=== PATIENT | male | born 1965 | race Caucasian/White ===

== ENCOUNTER 2019-03-16 09:07 | Outpatient (REF) | payer BC, SELFPAY ==
[2019-03-16 20:55] LABS: Anion Gap 9.1 mmol/L (3-11); BUN 19 mg/dL (7-18); CO2 30.9 mmol/L (21.0-32.0); CREATININE 0.85 mg/dL (0.70-1.30); Calcium 9.1 mg/dL (8.5-10.1); Chloride 99 mmol/L (98-107); Cholesterol 134 mg/dL (50-200); Glucose 105 mg/dL (70-100); HDL Cholesterol 45 mg/dL (40-60); LDL CHOLESTEROL 68 mg/dL (<100); Potassium 4.6 mmol/L (3.5-5.1); Sodium 139 mmol/L (136-145); Triglyceride 95 mg/dL (30-150)
== END 2019-03-16 09:27 ==
LOC: NCHCN 09:07
PROVIDERS: PCP Nurse Practitioner Family; Visit Provider Specialist/Technologist Athletic Trainer
DX: Z00.00 Encounter for general adult medical examination without abnormal findings (principal); Z13.228 Encounter for screening for other metabolic disorders; Z13.220 Encounter for screening for lipoid disorders
CPT/HCPCS: 80048; 80061; 83721

== ENCOUNTER 2019-05-20 14:01 | Emergency (ER) | payer BC, SELFPAY ==
[2019-05-20 14:03] VITALS: BP 179/93; PULSE 104; RESP 18; TEMP 36.5; O2SAT 97
--- NOTE | 2019-05-20 14:12 | W.ED.GENAD ---
Discharge Plan Disposition Patient Disposition: HOME Condition: Stable Discharge Details Chief Complaint: GenMedical Clinical Impression: Chest pain Primary Care Provider: Tamara Coleman V ED Provider: Ta Gimenez Home Meds and New Rx's Prescriptions: No Action aspirin 325 MG tablet 325 mg PO DAILY RF: 0 amlodipine 5 MG tablet 5 mg PO DAILY RF: 0 metoprolol succinate 25 MG tablet extended release 24 hr 37.5 mg PO DAILY RF: 0 atorvastatin 40 mg Tablet 40 mg PO DAILY RF: 0 lisinopril 20 mg Tablet 20 mg PO DAILY RF: 0 Discharge Instructions Instructions: Chest Pain (ED) Additional Instructions: follow up with your primary care provider within 1 week and discuss having stress testing if you have worsening pain, difficulty breathing or feel more ill return to the emergency department Medical Decision Making 54 yo fmale with hx of htn, hld, who comes in feeling chest achiness in the anterior chest since last night. Denies fevers, cough, increased pain with exertion, does have pain with movement of the left arm. He has no radiation of pain, diaphoresis, n/v. He is in no distress on exam, has reproducible pain with palpation to the anterior chest, clear lungs, no mururs , no leg swelling or calf pain. I suspect his pain is musculoskeletal in nature, but given his age and heart score of 3 will send troponin. Will also send d dimer given HR of 105 during my exam , wells score low. He has no tearing back pain normal vascular exam so doubt dissection. Given clear lungs, no fevers and cough doubt ptx or pna at this time Patient remains well in no distress and only has pain when I push on his chest. Labs unremarkable, given over a day of pain do not feel delta troponin would be of benefit. Will d/c home and advised f/u with pcp and return precautions given Differential Diagnosis chest wall pain, acs, pe Medical Records Medical records reviewed: Yes I reviewed the patient's medical records. Lab Data Lab results reviewed: Yes I reviewed the patient's lab results. ECG Data Attestation: I personally reviewed and interpreted this ECG (s) as follows: Prior ECG tracings: not available for review Interpretation: sinus rhythm, rate of 100, pr 192, no acute st t wave ischemic findings HPI General Mode of arrival: ambulatory. Date/Time Provider Initiated Documentation: 05/20/19 14:03. Limitations to Documentation: no limitations. Information obtained by: patient. History of Present Illness 54 year old M presents to the emergency department with the chief complaint of chest achiness, described as mild, with intensity rated at 3. Quality is described as aching, and is localized to the chest. Patient reports no radiation. Patient started experiencing this day(s) (1) and it has been constant. No relieving factors improve symptom(s), No exacerbating factors reported . Patient did receive the following treatments prior to arrival, none Related Data Home Medications Medication Instructions Recorded Confirmed amlodipine 5 mg PO DAILY tab-cap 06/19/14 05/20/19 aspirin 325 mg PO DAILY tab-cap 06/19/14 05/20/19 metoprolol succinate 37.5 mg PO DAILY tab-cap 06/19/14 05/20/19 atorvastatin 40 mg PO DAILY 05/20/19 05/20/19 lisinopril 20 mg PO DAILY 05/20/19 05/20/19 Allergies Allergy/AdvReac Type Severity Reaction Status Date / Time No Known Allergies Allergy Unverified 05/20/19 14:11 General Stated Complaint: GenMedical BUCK: 3 Review of Systems Review of Systems All systems reviewed & are unremarkable except as noted in HPI and below Constitutional Denies chills, Denies fever(s) and Denies weakness Cardiovascular Denies dyspnea Respiratory Denies cough and Denies dyspnea Gastrointestinal Denies abdominal pain, Denies nausea and Denies vomiting Integumentary/Breasts Denies rash Neurologic Denies weakness PFSH Social History Smoking/Tobacco Use Status: Never Alcohol Intake: current Alcohol Intake frequency: 3 or more drinks per day Alcohol type: beer Drug use: Never Do you feel safe at home: Yes Do you feel safe in your relationship?: Yes Exam Const General: no acute distress Orientation: alert [facility] Head: normal to inspection Ears: external ears normal General nose exam: external nose normal Mouth: moist mucous membranes Eyes General: appearance normal, both eyes and all related structures Neck Neck: normal visual inspection Resp Effort & Inspection: normal respiratory effort and able to speak in complete sentences Cardio Rate: regular rate Skin General skin exam: no rashes or lesions noted Neuro General: alert and oriented x3 Extrem General: normal to inspection Psych Mental Status: mental status grossly normal Course Vital Signs Temperature 36.5 C 05/20/19 14:03 Pulse 104 H 05/20/19 14:03 Respiratory Rate 18 05/20/19 14:03 Blood Pressure 179/93 H 05/20/19 14:03 Pulse Oximetry 97 05/20/19 14:03 Temperature 36.5 C 05/20/19 14:03 Temperature Source Skin 05/20/19 14:03 Pulse 104 H 05/20/19 14:03 Respiratory Rate 18 05/20/19 14:03 Respiratory Effort Non-Labored 05/20/19 14:06 Blood Pressure 179/93 H 05/20/19 14:03 Blood Pressure Position Sitting 05/20/19 14:03 Pulse Oximetry 97 05/20/19 14:03 Oxygen Delivery Method Room Air 05/20/19 14:03 Oxygen Flow Rate 0 05/20/19 14:03
[2019-05-20] MEDS: Normal Saline Flush 10 ML SYR IVP (14:14)
[2019-05-20 14:18] VITALS: RESP 18
[2019-05-20] MEDS: Normal Saline 1,000 ML 1000 ML IV (14:24)
[2019-05-20 14:31] LABS: Abs Immature Grans 0.05 k/cumm (0.0-0.09); Absolute Basophil Count 0.02 k/cumm (0.0-0.2); Absolute Eosinophil Count 0.02 k/cumm (0.0-0.7); Absolute Lymphocyte Count 1.57 k/cumm (1.2-3.4); Absolute Monocyte Count 0.73 k/cumm (0.11-0.7); Absolute Neutrophil Count 3.65 k/cumm (1.2-6.7); Basophils % 0.3; Eosinophils % 0.3; HGB 15.1 g/dL (13.5-17.5); Immature Grans % 0.8; Mean Corp. HGB Concentration 34.3 g/dL (32.0-36.0); Mean Corpuscular Hemoglobin 32.5 pg (27.0-33.0); Mean Corpuscular Volume 94.6 fL (80-95); Mean Platelet Volume 9.5 fL (8.0-11.0); Monocytes % 12.1; Neutrophils % 60.5; Platelet Count 268 x1000/uL (130-400); RBC 4.65 m/cumm (4.50-6.00); White Blood Cell Count 6.04 k/cumm (4.4-10.8)
[2019-05-20 14:40] LABS: PTT Activated 24.5 sec (21.0-31.4); Prothrombin Time 10.4 sec (9.3-11.0)
[2019-05-20 14:55] LABS: D-Dimer 259 ng/mlFEU (<500)
[2019-05-20 15:07] LABS: ALT 44 U/L (12-78); AST 23 U/L (15-37); Albumin 4.4 g/dL (3.4-5.0); Alkaline Phosphatase 89 U/L (46-116); BUN 15 mg/dL (7-18); Bilirubin, Total 0.6 mg/dL (0.2-1.0); CREATININE 1.01 mg/dL (0.70-1.30); Calcium 9.9 mg/dL (8.5-10.1); Chloride 102 mmol/L (98-107); Glucose 114 mg/dL (70-100); Magnesium 2.2 mg/dL (1.8-2.4); NT-proBNP 28 pg/mL; Potassium 3.9 mmol/L (3.5-5.1); Sodium 141 mmol/L (136-145); Total Protein 7.8 g/dL (6.4-8.2); Troponin I < 0.05 ng/mL (0.00-0.06)
[2019-05-20 15:19] VITALS: BP 141/80; PULSE 84; RESP 16; TEMP 37.1; O2SAT 97
== END 2019-05-20 15:23 | disposition home or self-care (01) ==
PROVIDERS: Emergency Provider Emergency Medicine; PCP Family Medicine
DX: R07.9 Chest pain, unspecified (principal); I10 Essential (primary) hypertension
CPT/HCPCS: 36415; 80053; 93005; 96360; 99284; 83735; 83880; 84484; 85025; 85379; 85610; 85730; 93010; J3490

== ENCOUNTER 2021-05-27 08:42 | Outpatient (REF) | payer BC, SELFPAY ==
[2021-05-27 15:01] LABS: ALT 45 U/L (16-63); AST 25 U/L (15-37); Albumin 4.5 g/dL (3.4-5.0); Alkaline Phosphatase 72 U/L (46-116); Anion Gap 9.2 mmol/L (3-11); BUN 14 mg/dL (7-18); Bilirubin, Total 0.7 mg/dL (0.2-1.0); CO2 29.8 mmol/L (21.0-32.0); CREATININE 0.9 mg/dL (0.70-1.30); Calcium 9.4 mg/dL (8.5-10.1); Chloride 103 mmol/L (98-107); Glucose 96 mg/dL (74-106); Potassium 4.4 mmol/L (3.5-5.1); Sodium 142 mmol/L (136-145)
[2021-05-27 15:17] LABS: Hemoglobin A1C 5.5 % (<5.7)
== END 2021-05-27 08:43 | disposition home or self-care (01) ==
LOC: NCHCN 08:42
PROVIDERS: PCP Family Medicine; Visit Provider Nurse Practitioner Family
DX: I10 Essential (primary) hypertension (principal); R73.9 Hyperglycemia, unspecified; F10.99 Alcohol use, unspecified with unspecified alcohol-induced disorder
CPT/HCPCS: 80053; 83036

== ENCOUNTER 2021-08-09 10:15 | Outpatient (REF) | payer BC, SELFPAY ==
[2021-08-10 15:32] LABS: COVID-19 RT-PCR UVMMC Result Negative (Negative)
== END 2021-08-09 10:16 | disposition home or self-care (01) ==
LOC: NCHCN 10:15
PROVIDERS: PCP Family Medicine; Visit Provider Physician Assistant Medical
DX: Z20.822 Contact with and (suspected) exposure to COVID-19 (principal); J06.9 Acute upper respiratory infection, unspecified
CPT/HCPCS: U0003

== ENCOUNTER 2022-06-02 11:10 | Outpatient (REF) | payer OTHER, SELFPAY ==
[2022-06-02 16:49] LABS: Hemoglobin A1C 5.6 % (<5.7)
[2022-06-02 17:04] LABS: Anion Gap 9.3 mmol/L (3-11); BUN 20 mg/dL (7-18); CO2 25.7 mmol/L (21.0-32.0); CREATININE 0.9 mg/dL (0.70-1.30); Calcium 8.6 mg/dL (8.5-10.1); Calculated LDL 81 mg/dL (<100); Chloride 103 mmol/L (98-107); Cholesterol 160 mg/dL (<200); Glucose 107 mg/dL (74-106); HDL Cholesterol 63 mg/dL (40-60); Sodium 138 mmol/L (136-145); Triglyceride 82 mg/dL (<150)
== END 2022-06-02 11:11 | disposition home or self-care (01) ==
LOC: NCHCN 11:10
PROVIDERS: PCP Family Medicine; Visit Provider Nurse Practitioner Family
DX: E78.5 Hyperlipidemia, unspecified (principal); I10 Essential (primary) hypertension; R73.09 Other abnormal glucose
CPT/HCPCS: 80048; 80061; 83036

== ENCOUNTER 2023-06-08 15:20 | Outpatient (REF) | payer OTHER, SELFPAY ==
[2023-06-08 16:18] LABS: Hemoglobin A1C 5.5 % (<5.7)
[2023-06-08 16:30] LABS: ALT 43 U/L (16-63); AST 32 U/L (15-37); Albumin 4.1 g/dL (3.4-5.0); Alkaline Phosphatase 81 U/L (46-116); Anion Gap 6.8 mmol/L (3-11); BUN 17 mg/dL (7-18); Bilirubin, Total 0.7 mg/dL (0.2-1.0); CO2 29.2 mmol/L (21.0-32.0); Calcium 9.1 mg/dL (8.5-10.1); Chloride 102 mmol/L (98-107); Estimated GFR 86.16 (mL/min/1.73m2); Glucose 100 mg/dL (74-106); Potassium 4.2 mmol/L (3.5-5.1); Sodium 138 mmol/L (136-145); Total Protein 7.1 g/dL (6.4-8.2)
[2023-06-08 17:25] LABS: Vitamin D 25 Total 21.7 ng/mL (30-100)
[2023-06-09 19:44] LABS: PSA, Screening 0.3 ng/mL (<=4.5)
== END 2023-06-08 15:21 | disposition home or self-care (01) ==
LOC: NCHCN 15:20
PROVIDERS: PCP Family Medicine; Visit Provider Nurse Practitioner Family
DX: Z00.00 Encounter for general adult medical examination without abnormal findings (principal); I10 Essential (primary) hypertension; E78.5 Hyperlipidemia, unspecified; R73.09 Other abnormal glucose; Z12.5 Encounter for screening for malignant neoplasm of prostate; E55.9 Vitamin D deficiency, unspecified
CPT/HCPCS: 80053; 82306; 84153; 83036

== ENCOUNTER 2024-06-20 12:25 | Outpatient (REF) | payer OTHER, SELFPAY ==
[2024-06-20 16:22] LABS: Hemoglobin A1C 5.7 % (<5.7)
[2024-06-20 16:32] LABS: ALT 46 U/L (16-63); AST 34 U/L (15-37); Albumin 4.2 g/dL (3.4-5.0); Alkaline Phosphatase 84 U/L (46-116); Anion Gap 6.6 mmol/L (3-11); BUN 15 mg/dL (7-18); Bilirubin, Total 0.62 mg/dL (0.2-1.0); CO2 31.4 mmol/L (21.0-32.0); Calcium 9.2 mg/dL (8.5-10.1); Calculated LDL 75 mg/dL (<100); Chloride 102 mmol/L (98-107); Cholesterol 161 mg/dL (<200); Estimated GFR 85.63 (mL/min/1.73m2); Glucose 107 mg/dL (74-106); HDL Cholesterol 62 mg/dL (40-60); Potassium 4.3 mmol/L (3.5-5.1); Sodium 140 mmol/L (136-145); Total Protein 7.1 g/dL (6.4-8.2); Triglyceride 120 mg/dL (<150); Vitamin D 25 Total 28.6 ng/mL (30-100)
== END 2024-06-20 12:26 | disposition home or self-care (01) ==
LOC: NCHCN 12:25
PROVIDERS: PCP Family Medicine; Visit Provider Nurse Practitioner Family
DX: Z00.00 Encounter for general adult medical examination without abnormal findings (principal); E78.5 Hyperlipidemia, unspecified; E55.9 Vitamin D deficiency, unspecified
CPT/HCPCS: 80053; 80061; 82306; 83036

== ENCOUNTER 2024-08-29 01:22 | Outpatient (CLI) | payer OTHER, SELFPAY ==
--- NOTE | 2024-08-29 14:30 | DI.US_ITS ---
APPROVED REPORT EXAM: Comprehensive 2D, Doppler, and color-flow Echocardiogram Patient Location: Out-Patient Glass Calibrator: Gerard Bales RDCS (AE) Indications: Aortic valve stenosis Conclusion Mild concentric left ventricular hypertrophy. Ejection fraction is 60%. Wall motion is normal Normal right ventricular size and function Both atria are normal in size Aortic valve is sclerotic. There is mild aortic stenosis. Mean gradient is 10 mmHg. There is no ao rtic regurgitation Mildly thickened mitral leaflets Ascending aorta measures 3.74 cm Wall motion Left Ventricle Left ventricular cavity is small. The left ventricular systolic function is normal. The left ventricu lar ejection fraction is within the normal range. Mild concentric left ventricular hypertrophy. There is normal LV segmental wall motion. There is no ventricular septal defect visualized. LVEF is 60-64% . Right Ventricle The right ventricle is normal size. The right ventricular systolic function is normal. Atria The left atrium size is normal. The right atrium size is normal. The interatrial septum is intact wit h no evidence for an atrial septal defect. Aortic Valve The aortic valve is sclerotic. Mean gradient is 10 mmHg, mild aortic stenosis No aortic regurgitation is present. Mitral Valve Thickened mitral leaflets No evidence of mitral valve stenosis. There is no mitral valve regurgitatio n noted. Tricuspid Valve The tricuspid valve is normal in structure. There is no tricuspid valve stenosis. Trace tricuspid reg urgitation. The RVSP is 11.4 mmHg. Pulmonic Valve The pulmonary valve is normal in structure. There is no pulmonic valvular stenosis. There is no pulmo rosa maria valvular regurgitation. Great Vessels The aortic root is normal in size. The ascending aorta is mildly dilated. Aortic arch is normal in ca liber. IVC is normal in size and collapses >50% with inspiration. Pericardium There is no pericardial effusion. 2D Dimensions IVSD d PLAX 1.67 cm M: 0.6-1.2 Ao Root d 3.33 cm M: 3.1 - 3.7 LVPW d PLAX 1.71 cm M: 0.6 - 1.2 Ao Asc Diam d 3.74 cm M: 2.6 - 3.4 LVID d PLAX 4.00 cm M: 4.2 - 5.8 LVDs 2.64 cm M: 2.5 - 4.0 LV EF Teichholz 63.6 % FS 34.06 % LV EDV (Teich) 70.0 mL LV ESV (Teich) 25.5 mL Stroke Vol Index (Teich) 22.26 M-Mode TAPSE 1.78 cm (M/F) >1.7 Auto EF LV EDV A4C 76.1 mL LV EDV A2C 69.4 mL LV EDV BP 72.6 mL LV ESV A4C 30.6 mL LV ESV A2C 27.5 mL LV ESV BP 29.2 mL LVEF(%) A4C 59.8 % LVEF(%) A2C 60.4 % LVEF(%) BP 59.7 % LV SV A4C 45.5 ml LV SV A2C 41.9 ml LV SV BP 43.4 ml LV CO A4C 4.2 L/min LV CO A2C 3.7 L/min LV CO BP 3.9 L/min HR A4C 91.84 BPM HR A2C 87.59 BPM LV EDV Index (BP) LA Volume LA Length A4C 6.4 cm LA Length A2C 5.6 cm LA Area A4C s 16.43 cm2 LA Area A2C s 14.06 cm2 LA Vol A4C A-L 35.98 mL LA Vol A2C A-L 30.22 mL LA Vol Biplane A-L 35.3 mL LA Vol/BSA A4C A-L LA Vol/BSA A2C A-L LA Vol/BSA BP A-L 17.6 mL/m2 LA Vol A4C MOD 34.2 mL LA Vol A2C MOD 28.8 mL LA Vol BP MOD 33.1 mL RA Volume RA Area A4C 12.1 cm2 RA ESV A4C (A-L) 27.9mL RA Vol/BSA A4C A-L RA Length A4C 4.5 cm RA ESV A4C (MOD) 25.5mL LV Diastology MV E' medial 0.071 (>0.07 m/s) MV E Vmax 0.26 (0.4-1.3 m/s) MV E/E' MED 3.61 (<14) MV A Vmax 1.05 (0.4-1.3 m/s) MV E' lateral 0.097 (>0.1 m/s) E/A Ratio 0.2 MV E/E' LAT 2.65 (<14) MV E' Average 0.084 m/s MV E/E'(average) 3.06 Aortic Valve AoV Vmax 2.18 m/s LVOT Diam s 1.95 cm AoV Peak Grad 19.1 mmHg AV Regurg Peak Gr. 19.06 mmHg AoV VTI 0.391 m AoV Mean Roger. 1.51 m/s AoV Mean Grad 10.4 mmHg Mitral Valve MV Vmax TIPS 1.17 m/s MV Mean Grad 2.1 (<2mmHg) MV VTI 0.186 m Pulmonary Valve PV Vmax 1.17 (0.5-1.5 m/s) RVOT Vmax 0.78 m/s PV Peak Grad 5.4 mmHg RVOT Peak Gr. 2.4 mmHg PV Mean Roger 0.85 m/s RVOT VTI 0.150 m PV Mean Grad 3.3 mmHg RVOT Mean Gr. 1.4 mmHg Tricuspid Valve RA Pressure 3.00 mmHg TR Vmax 1.45 m/s TR Peak Grad 8.4 mmHg RVSP (TR) 11.4 mmHg
== END 2024-08-29 01:42 ==
LOC: DI 01:22
PROVIDERS: PCP Family Medicine; Visit Provider Nurse Practitioner Family
DX: I35.0 Nonrheumatic aortic (valve) stenosis (principal)
CPT/HCPCS: 93306

== ENCOUNTER 2024-11-14 06:10 | Day surgery (SDC) | payer OTHER, SELFPAY ==
--- NOTE | 2024-11-13 06:43 | W.PM.DSUDISC ---
Date of service: 11/14/24 Discharge Plan Disposition Patient Disposition: Home Condition: Good Discharge Details Reason For Visit: screening colonoscopy Attending Provider: Cyrus Chawla Primary Care Provider: Tamara Coleman V Home Meds and New Rx's Prescriptions: Continued cholecalciferol (vitamin D3) 50 mcg (2,000 unit) capsule 50 mcg PO DAILY amlodipine 5 MG tablet 5 mg PO HS metoprolol succinate 25 MG tablet extended release 24 hr 37.5 mg PO HS sildenafil (pulm.hypertension) 20 mg tablet 20 mg PO TID PRN Rx Instructions: administer doses at least 4-6 hours apart valacyclovir 1 gram tablet 1,000 mg PO BID PRN atorvastatin 40 mg Tablet 40 mg PO DAILY lisinopril 20 mg Tablet 20 mg PO DAILY Discontinued bisacodyl [Dulcolax (bisacodyl)] 5 mg tablet,delayed release (DR/EC) 5 mg PO ONCE Qty: 4 0RF Rx Instructions: Take per colonoscopy instructions provided by ordering providers office polyethylene glycol 3350 17 gram/dose powder 17 g PO ONCE Qty: 238 0RF Rx Instructions: Take per colonoscopy instructions provided by ordering providers office Discharge Instructions Instructions: Diverticulosis Additional Instructions: Shin, was very nice meeting you today, and I hope you are comfortable throughout the colonoscopy. Everything went very smoothly. Your prep was outstanding and I could see everything fine. You have no evidence of any tumors or polyps anywhere in your large intestine. Incidentally, you do have some diverticulosis. Diverticula are little weak spots in the muscular layer of the colon wall. This causes the inside lining to pocket her pooch outwards. Sometimes these can get impacted with stool, causing inflammation flareups that we refer to as diverticulitis. Most patients that I do colonoscopies and have diverticulosis and are never bothered by it. I did attach a little bit of information here about diverticular management. If you have any questions at all, please do not hesitate to ask. Otherwise, I recommend another colonoscopy in 10 years as part of routine health maintenance. 1. If tolerated, consume a soft, low fiber diet for 1-2 days. 2[address] Do not drive, drink alcohol, operate machinery, make critical decisions, or do activities that require coordination or balance for 24 hours. 3. Because air was put into your colon during the procedure, expelling air from your rectum (passing gas or farting) is normal. 4. You may not have a bowel movement for 1-3 days because of the colonoscopy prep. This is normal. 5. Go directly to the emergency room if you notice any of the following: Develop chills (warm to touch), or if you have a thermometer and your temperature is above 101 Difficulty breathing or difficultly swallowing Persistent vomiting Severe abdominal pain, other than gas cramps Severe chest pain Black, tarry stools Any bleeding ? exceeding one tablespoon 6. Call your physician if the site where your intravenous was started becomes red, swollen, painful, and warm to touch. 7. Your physician has reviewed your pre-procedure medications. Please continue to take those medications as previously ordered. You will be given specific information/education regarding any changes to your medications before leaving. Activity:: Activity as Tolerated Diet:: As Tolerated Discharge Orders Discharge Orders: Discharge Order (Routine); Ordered 11/13/24 Ordered By: Cyrus Chawla DS: Diagnosis Discharge Diagnosis (1) Encounter for screening colonoscopy: Status: Acute Asessment and Plan: Diverticulosis; otherwise negative screening colonoscopy. 10-year follow-up
--- NOTE | 2024-11-13 06:44 | W.COLOREPORT ---
Date of service: 11/14/24 Time of Service: 07:51 Colonoscopy Report Date of procedure: 11/14/24 Pre-op diagnosis general: screening colonoscopy Post-op diagnosis procedure note: other (Diverticulosis) Procedure: colonoscopy Surgeon: Cyrus Chawla Anesthesia Type: General:No Airway Estimated blood loss (mL): 0 Pathology: none sent Complications: None Disposition: same day Indications: Shin is a 59 year old man who needs a screening colonoscopy Prep: Miralax/Dulcolax Procedure Start Time: 07:31 Procedure End Time: 07:42 Retraction Time: 7 Findings: Diverticulosis Procedure Description: After the induction of anesthesia, and with Shin in left lateral decubitus position, I began by performing an external anorectal exam.? Perineum and skin were normal, as was the anal verge.? There was no evidence of external hemorrhoids.? Next, I performed a digital rectal exam.? I did not appreciate any abnormal findings.? Next, I advanced a colonoscope into the rectal vault.? I performed retroflexion.? This appeared normal.? Using insufflation, I then advanced the colonoscope beyond the rectal folds and into the sigmoid colon before advancing towards the cecum.? There is sigmoid diverticulosis, and occasional diverticula scattered throughout the rest of the colon..? The scope was noted to be in the cecum by identification of the ileocecal valve and appendiceal orifice.? I then began withdrawing the colonoscope using repeated irrigation as necessary for full evaluation of the colonic mucosa. ?Once the scope was withdrawn to the level of the rectum, great care was taken to examine portions of the rectal folds.? I saw no evidence of any tumors or polyps anywhere within the length of the colon. Finally, the scope was withdrawn and the patient was brought to the same-day surgery recovery unit as the anesthetic wore off. ?The findings and instructions were shared with the patient prior to discharge. [place] Bowel Prep [place] Bowel Prep Right Colon: 3 Left Colon: 3 Transverse Colon: 3 Total Score: 9
--- NOTE | 2024-11-13 15:19 | W.ANESPRE ---
General Info Date of Service Date Performed: 11/14/24 Height: 5 ft 6 in Weight: 95.254 kg Body Mass Index (BMI): 33.9 Surgical Procedure: Operation Date: 11/14/24 07:35 Proposed Procedure Side Surgeon jose luis Chawla MD Meds Allergies and Home Medications Allergies Allergy/AdvReac Type Severity Reaction Status Date / Time No Known Allergies Allergy Verified 11/14/24 06:25 Home Medication ?Medication ?Instructions ?Recorded amlodipine 5 mg tablet 5 mg PO HS 06/19/14 metoprolol succinate 25 mg 37.5 mg PO HS 06/19/14 tablet,extended release 24 hr atorvastatin 40 mg tablet 40 mg PO DAILY 05/20/19 lisinopril 20 mg tablet 20 mg PO DAILY 05/20/19 sildenafil (pulm.hypertension) 20 20 mg PO TID PRN 08/11/24 mg tablet valacyclovir 1 gram tablet 1,000 mg PO BID PRN 08/11/24 bisacodyl 5 mg tablet,delayed 5 mg PO ONCE #4 tabs 10/20/24 release (Dulcolax (bisacodyl)) cholecalciferol (vitamin D3) 50 50 mcg PO DAILY 10/20/24 mcg (2,000 unit) capsule polyethylene glycol 3350 17 17 g PO ONCE #238 grams 10/20/24 gram/dose oral powder Current Visit Medications: Current Medications Generic Name Dose Route Start Last Admin Trade Name Freq PRN Reason Stop Dose Admin Ringer's Solution 1,000 mls @ 80 mls/hr 11/14/24 06:00 IV 11/14/24 23:59 [facility] IV Miscellaneous Supplies 1 each 11/14/24 06:00 Iv Access IV 11/14/24 23:59 DIRECTED SINAN Ondansetron HCl 4 mg 11/13/24 06:48 Ondansetron 4 Mg/2 Ml Vial IVP 12/13/24 06:47 Q4H PRN PRN Nausea / Vomiting Sodium Chloride 0 ml 11/14/24 06:00 Normal Saline Flush 10 Ml Syr IV 11/14/24 23:59 PRN PRN Sodium Chloride 0 ml 11/14/24 06:00 Normal Saline 10 Ml Vial IJ 11/14/24 23:59 DIRECTED PRN Sterile Water 0 ml 11/14/24 06:00 Water,Injection,Sterile 10 Ml Vial IJ 11/14/24 23:59 DIRECTED PRN PFS Active Problems Active Problems: Problem Status Onset Code Skin lesion Acute L98.9 Encounter for screening colonoscopy Acute Z12.11 Medical History Medical History Erectile dysfunction Diverticula of intestine Hyperlipidemia Acquired hallux valgus of left foot Vitamin D deficiency Alcohol abuse Plantar fascial fibromatosis NAYE (obstructive sleep apnea) Aortic valve stenosis Mild stenosis EF 60-64 % per ECHO 08/29/24 Tobacco Smoking/Tobacco Use Status: Never Alcohol Alcohol Intake: current Alcohol intake frequency: 3 or more drinks per day Alcohol type: beer Substance Use Substance use: Never Substance use type: does not use Vital Signs and Lab Results Vital Signs Most Recent Vital Signs in EMR: Temp Pulse Resp BP Pulse Ox 36.6 C 95 H 18 123/76 95 11/14/24 06:34 11/14/24 06:34 11/14/24 06:34 11/14/24 06:34 11/14/24 06:34 Lab Results Blood Type / Crossmatch: No Data to Display Complete Blood Count: No Data to Display Complete Metabolic Panel: No Data to Display Liver Function Panel: No Data to Display Coagulation Panel: No Data to Display Cardiac Panel: No Data to Display Arterial Blood Gas: No Data to Display Venous Blood Gas: No Data to Display Pancreas Panel: No Data to Display Thyroid Panel: No Data to Display Infectious Disease: No Data to Display Blood Cultures: No Data to Display Toxicology Panel: No Data to Display Anesthesia Assessment and Plan Anesthesia History Personal History: No History of Anesthesia Complications Family History: No Family History of Anesthesia Complications Exercise Tolerance Exercise Tolerance: Metabolic Equivalents>4 Cardiac & Pulmonary Exam Cardiac Exam: Normal S1/S2 Heart Sounds Pulmonary Exam: Clear Bilateral Breath Sounds Implantable Cardiac Device Does patient have a Pacemaker or an ICD?: No Airway Exam Known Difficult Airway: No Mallampati Class: 4 Mouth Opening: Narrow (< 3cm) Thyromental Distance: Greater than 3 cm Neck Range of Motion: Full ROM Neck Circumference: Normal Teeth Condition: Normal Dentition ASA Classification ASA Score: ASA 2 Emergency Case?: No NPO Status NPO Status: NPO Clears >2 hours, Solids >8 hours Anesthesia Plan Resuscitation Status: Full Code Anesthesia Technique: General Anesthesia Airway Planned: Natural Airway Monitors Used: Standard Monitors Preoperative Comments:: 59 yo male for colo. Sig PMHx: Aortic stenosis, HTN (lisinopril, metoprolol, amlodipine. well controlled), NAYE (intermittent CPAP use), never smoker, daily EtOH. ECHO: LVEF 60%, mild . Stress: unlikely ischemia. Previous Anes: - non anesthesia colo, midaz 5 mg/fentanyl 150 mcg, no issues.
[2024-11-14 06:34] VITALS: BP 123/76; PULSE 95; RESP 18; TEMP 36.6; O2SAT 95
[2024-11-14] MEDS: Lactated Ringers 1,000 ML 80 ML IV (06:48)
[2024-11-14 06:52] VITALS: BMI 33.9
[2024-11-14 07:45] VITALS: BP 95/67; PULSE 83; RESP 18; TEMP 36.2; O2SAT 96
--- NOTE | 2024-11-14 08:11 | W.ANESPOSTOP ---
Postoperative Evaluation Date, Time and Location Date Performed: 11/14/24 Time Performed: 07:55 Patient Location: Day Surgery Unit Vital Signs Most Recent Imported Vital Signs: Most Recent Vital Signs Temp Pulse Resp BP Pulse Ox 36.2 C L 83 18 95/67 L 96 11/14/24 07:45 11/14/24 07:45 11/14/24 07:45 11/14/24 07:45 11/14/24 07:45 Pain Score Most Recent Pain Score: Most Recent Pain Score Pain Level 0 11/14/24 07:45 Assessment Mental Status: Awake (Alert & Oriented to Patient Baseline) Airway and Respiratory Function: Patent airway with normal (patient baseline) respiratory exam Cardiovascular Function: Hemodynamically Stable Hydration Status: Adequately Hydrated Nausea & Vomiting: No Nausea or Vomiting Pain: Pt. Denies Any Pain Peripheral Nerve Block: Patient did not receive a nerve block
[2024-11-14 08:15] VITALS: BP 120/72; PULSE 78; RESP 18; TEMP 36.2; O2SAT 96
== END 2024-11-14 08:30 | disposition home or self-care (01) ==
LOC: SUR 06:11
PROVIDERS: PCP Family Medicine; Visit Provider Surgery
PROC: 0DJD8ZZ Inspection of Lower Intestinal Tract, Via Natural or Artificial Opening Endoscopic (ICD-10-PCS; CPT 45378; principal; 2024-11-14 07:30)
DX: Z12.11 Encounter for screening for malignant neoplasm of colon (principal); I10 Essential (primary) hypertension; G47.33 Obstructive sleep apnea (adult) (pediatric); K57.30 Diverticulosis of large intestine without perforation or abscess without bleeding
CPT/HCPCS: 45378; J2704

== ENCOUNTER 2025-07-10 16:05 | Outpatient (REF) | payer OTHER, SELFPAY ==
[2025-07-10 16:27] LABS: ALT 34 U/L (16-63); AST 22 U/L (15-37); Albumin 4.3 g/dL (3.4-5.0); Alkaline Phosphatase 85 U/L (46-116); Anion Gap 8.1 mmol/L (3-11); BUN 14 mg/dL (7-18); Bilirubin, Total 0.8 mg/dL (0.2-1.0); CO2 29.9 mmol/L (21.0-32.0); Calcium 9.5 mg/dL (8.5-10.1); Chloride 101 mmol/L (98-107); Estimated GFR 96.57 (mL/min/1.73m2); Glucose 104 mg/dL (74-106); Potassium 4.4 mmol/L (3.5-5.1); Sodium 139 mmol/L (136-145); Total Protein 6.9 g/dL (6.4-8.2)
[2025-07-19 21:25] LABS: Testosterone, Free 49.8 pg/mL (35.0-155.0)
== END 2025-07-10 16:06 | disposition home or self-care (01) ==
LOC: NCHCN 16:05
PROVIDERS: PCP Nurse Practitioner Family; Visit Provider Nurse Practitioner Family
DX: F52.21 Male erectile disorder (principal); E78.5 Hyperlipidemia, unspecified
CPT/HCPCS: 80053; 84402; 84403